=== PATIENT | female | born 1970 | race Caucasian/White ===

== ENCOUNTER → 2018-05-04 11:38 | Outpatient (CLI) | payer OTHER, SELFPAY ==
[2018-05-04 12:04] LABS: Add Manual Diff / Slide Review NO; Basophils Percent Auto 0.7 % (0-2); Eosinophils Percent Auto 8.2 % (2-4); Hematocrit 40.1 % (36-46); Hemoglobin 13.8 g/dL (12.0-16.0); Lymphocytes Percent Auto 30.7 % (25-40); Mean Corpuscular HGB Conc 34.3 % (30-36); Mean Corpuscular Hemoglobin 30.3 PG (26-34); Mean Corpuscular Volume 88.5 fL (80-100); Monocytes Percent Auto 8.5 % (3-14); Neutrophils Absolute Auto 3200 /uL (3000-5900); Neutrophils Percent Auto 51.9 % (50-75); Platelet Count 267 X10^3/uL (150-400); Red Blood Cell Count 4.54 X10^6/uL (4.0-5.2); Red Cell Distribution Width 13.8 % (11.6-14.8); White Blood Cell Count 6.2 X10^3/uL (4.5-11.0)
[2018-05-04 12:49] LABS: Alanine Aminotransferase 28 IU/L (9-52); Albumin 3.7 g/dL (3.5-5.0); Albumin Globulin Ratio 1.1 (1.0-2.8); Alkaline Phosphatase 65 U/L (38-126); Aspartate Aminotransferase 24 IU/L (14-36); BUN Creatinine Ratio 17.1 (6-22); Bilirubin Total 0.4 mg/dL (0.2-1.3); Blood Urea Nitrogen 12 mg/dL (7-17); Carbon Dioxide 27 mmol/L (22-32); Chloride 104 mmol/L (98-107); Cholesterol 125 mg/dL (140-199); Estimated Glomerular Filt Rate > 60.0 mL/min (>60); Globulin 3.3 g/dL (1.7-4.1); Glucose 79 mg/dL (70-100); HDL Cholesterol 44 mg/dL (40-60); HEMOLYSIS < 15 (0-50); LDL Cholesterol Calculated 72 mg/dL (<100); Potassium 3.9 mmol/L (3.4-5.1); Sodium 138 mmol/L (137-145); Triglycerides 45 mg/dL (35-150)
[2018-05-04 14:07] LABS: INR 2.9 (0.9-1.3); Prothrombin Time 32.1 SECONDS (10.1-12.7)
[2018-05-04 14:09] LABS: PTT Partial Thromboplastin Tim 40 SECONDS (26.4-36.2)
[2018-05-04 15:07] LABS: Appearance Urine UA CLEAR; Bilirubin Urine UA NEGATIVE (NEGATIVE); Color Urine UA YELLOW; Glucose Urine UA NEGATIVE (Normal); Ketones Urine UA NEGATIVE (NEGATIVE); Leukocyte Esterase Urine UA NEGATIVE (NEGATIVE); Nitrite Urine UA Negative (Negative); Occult Blood Urine UA NEGATIVE (Negative); Protein Urine UA NEGATIVE (Negative); Urobilinogen Urine UA 0.2 E.U./dL (0.2)
== END ==
PROVIDERS: Family Provider Family Medicine; PCP Family Medicine; Visit Provider Family Medicine
DX: D68.51 Activated protein C resistance (principal); I10 Essential (primary) hypertension; K62.5 Hemorrhage of anus and rectum; Z51.81 Encounter for therapeutic drug level monitoring; Z79.01 Long term (current) use of anticoagulants
CPT/HCPCS: 36415; 80053; 80061; 81003; 84443; 85025; 85610; 85730

== ENCOUNTER → 2019-06-03 08:39 | Outpatient (CLI) | payer OTHER, SELFPAY ==
[2019-06-03 09:53] LABS: Appearance Urine UA CLEAR; Bilirubin Urine UA NEGATIVE (NEGATIVE); Color Urine UA YELLOW; Glucose Urine UA NEGATIVE (Negative); Ketones Urine UA NEGATIVE (NEGATIVE); Leukocyte Esterase Urine UA NEGATIVE (NEGATIVE); Nitrite Urine UA NEGATIVE (Negative); Occult Blood Urine UA NEGATIVE (Negative); Protein Urine UA NEGATIVE (Negative); Specific Gravity Urine UA 1.015 (1.000-1.035); Urobilinogen Urine UA 0.2 E.U./dL (0.2)
[2019-06-03 09:54] LABS: pH Urine UA 6.5 (4.5-8.0)
[2019-06-03 10:01] LABS: Hemoglobin 14.1 g/dL (12.0-16.0); Mean Corpuscular HGB Conc 33.5 % (30-36); Mean Corpuscular Hemoglobin 30.2 PG (26-34); Mean Corpuscular Volume 90.1 fL (80-100); Platelet Count 184 X10^3/uL (150-400); Red Blood Cell Count 4.66 X10^6/uL (4.0-5.2); White Blood Cell Count 8.1 X10^3/uL (4.5-11.0)
[2019-06-03 10:18] LABS: Neutrophils Absolute Manual 3888 /uL (3000-5900); Total Cells Counted 100
[2019-06-03 10:19] LABS: RBC Morphology Normal Morphology
[2019-06-03 10:24] LABS: Alanine Aminotransferase 18 IU/L (9-52); Albumin 4.1 g/dL (3.5-5.0); Albumin Globulin Ratio 1.2 (1.0-2.8); Alkaline Phosphatase 79 U/L (38-126); Aspartate Aminotransferase 27 IU/L (14-36); BUN Creatinine Ratio 28.8 (6-22); Bilirubin Total 0.6 mg/dL (0.2-1.3); Blood Urea Nitrogen 23 mg/dL (7-17); Calcium 9.4 mg/dL (8.4-10.2); Carbon Dioxide 27 mmol/L (22-32); Chloride 104 mmol/L (98-107); Cholesterol 152 mg/dL (140-199); Estimated Glomerular Filt Rate > 60.0 mL/min (>60); Globulin 3.5 g/dL (1.7-4.1); Glucose 88 mg/dL (70-100); HDL Cholesterol 48 mg/dL (40-60); HEMOLYSIS 16 (0-50); LDL Cholesterol Calculated 91 mg/dL (<100); Sodium 140 mmol/L (137-145); Total Protein 7.6 g/dL (6.3-8.2); Triglycerides 64 mg/dL (35-150)
[2019-06-03 10:45] LABS: Prothrombin Time 12.1 SECONDS (10.1-12.7)
[2019-06-03 11:31] LABS: Thyroid Stimulating Hormone 3.44 uIU/mL (0.47-4.68)
== END ==
PROVIDERS: PCP Family Medicine; Visit Provider Family Medicine
DX: Z00.00 Encounter for general adult medical examination without abnormal findings (principal); D68.51 Activated protein C resistance; I10 Essential (primary) hypertension; R32 Unspecified urinary incontinence; Z51.81 Encounter for therapeutic drug level monitoring
CPT/HCPCS: 36415; 80053; 80061; 81003; 84443; 85025; 85610

== ENCOUNTER → 2020-01-27 09:20 | Outpatient (CLI) | payer OTHER, SELFPAY ==
[2020-01-27 10:33] LABS: Alanine Aminotransferase 19 IU/L (<35); Albumin 4.2 g/dL (3.5-5.0); Albumin Globulin Ratio 1.2 (1.0-2.8); Alkaline Phosphatase 68 U/L (38-126); Aspartate Aminotransferase 27 IU/L (14-36); BUN Creatinine Ratio 23.5 (6-22); Bilirubin Total 0.5 mg/dL (0.2-1.3); Blood Urea Nitrogen 20 mg/dL (7-17); Calcium 9.7 mg/dL (8.4-10.2); Carbon Dioxide 28 mmol/L (22-32); Chloride 103 mmol/L (98-107); Cholesterol 152 mg/dL (140-199); Estimated Glomerular Filt Rate > 60.0 mL/min (>60); Globulin 3.6 g/dL (1.7-4.1); Glucose 89 mg/dL (70-100); HDL Cholesterol 41 mg/dL (40-60); HEMOLYSIS < 15 (0-50); LDL Cholesterol Calculated 101 mg/dL (<100); Potassium 4.1 mmol/L (3.4-5.1); Sodium 142 mmol/L (137-145); Total Protein 7.8 g/dL (6.3-8.2); Triglycerides 51 mg/dL (35-150)
== END ==
PROVIDERS: PCP Internal Medicine; Referring Provider Internal Medicine; Visit Provider Internal Medicine
DX: I10 Essential (primary) hypertension (principal); E66.01 Morbid (severe) obesity due to excess calories
CPT/HCPCS: 36415; 80053; 80061

== ENCOUNTER 2020-09-08 10:34 | Emergency (ER) | payer OTHER, SELFPAY ==
[2020-09-08] VITALS (10 sets, daily range): BP systolic 190–200; BP diastolic 81–94; PULSE 55–79; RESP 14–30; TEMP 35.8; O2SAT 82–98; BMI 43.5
--- NOTE | 2020-09-08 10:42 | ED_ITS ---
HPI - General Adult General Chief complaint: Chest Pain Stated complaint: nausea/vomiting/abdominal pain x3 day Time Seen by Provider: 09/08/20 10:42 History of Present Illness HPI narrative: 49-year-old with a history of factor 5 Leiden deficiency, prior pulmonary emboli on lifelong anticoagulation with Coumadin and hypertension presents with 4 days of chest and abdominal pain that she describes as starting just below the clavicles and extending to just above the umbilicus. She does have some pain centering between her shoulder blades she describes some nonbloody vomiting but no diarrhea. She notes she has been slightly constipated with her last bowel movement 3 days ago but she has also been hurting so much that she has been eating little. The pain is slightly worse with deep breathing and not helped with Tylenol. Tums is not influence the pain. She describes no dyspnea or palpitations but does describe chills and a sense of feeling warm without an overt temperature. She states the pain is severe enough that she has been able to sleep only 1-2 hours at a time in complains of significant fatigue as well. She notes no headaches and does not report any new lower extremity edema nor calf pain. Related Data Previous Rx's Medication Instructions Recorded bupropion HCl 150 mg tablet,12 hr 150 mg PO BID #180 tab 12/16/19 sustained-release metoprolol tartrate 25 mg tablet 25 mg PO BID #180 tab 12/16/19 warfarin 5 mg tablet 10 mg PO QDAY #60 tab 02/07/20 oxybutynin chloride 10 mg 10 mg PO DAILY #90 tab 08/04/20 tablet,extended release 24 hr losartan 25 mg tablet 25 mg PO DAILY #90 tab 09/07/20 oxycodone-acetaminophen 1 tab PO Q6H PRN 7 Days #20 tab 09/08/20 Allergies Allergy/AdvReac Type Severity Reaction Status Date / Time Sulfa (Sulfonamide Allergy Intermediate visual Verified 09/08/20 10:48 Antibiotics) disturbance venlafaxine Allergy Intermediate Verified 09/08/20 10:48 Review of Systems Review of Systems Narrative: Remainder of review of systems including constitutional, ENT, cardiovascular, respiratory, GI, , musculoskeletal, skin, neurologic and psychiatric systems reviewed and are unremarkable except as noted in HPI. Patient History Medical History ASCUS with positive high risk HPV Congenital heart disease Contusion of rib on right side Depression (Unknown) Factor V Leiden Hypertension Puncture wound of left hand Social History Smoking Status: Former smoker (Quit over 15 years ago) alcohol intake: never substance use type: does not use Smoking Status: Former smoker (Quit over 15 years ago) Exam Narrative Exam Narrative: General: Healthy appearing, in mild distress. Able to give a complete and coherent history. Well-nourished well-developed, able speak in full sentences without respiratory distress HEENT: Moist mucous membranes, normal sclera with reactive pupils, Neck: No JVD, supple Respiratory: Lungs are clear to auscultation, no wheezing no rales no rhonchi. Full and symmetrical air movement Cardiac: Regular rate and rhythm no murmurs no bruits Abdomen: Soft, mild epigastric tenderness, good bowel tones, no flank pain Spine: No point tenderness along the spine. She describes paraspinous pain between her shoulder blades that is not reproducible with palpation Skin: Warm and dry, no rashes Neurologic: Grossly neurologically intact with no obvious asymmetries or abnormalities Extremities: No trauma, well perfused Psych: Cooperative, appropriate insight and affect Initial Vital Signs Initial Vital Signs: Vital Signs Temperature 96.4 F L 09/08/20 10:43 Pulse Rate 79 09/08/20 10:43 Respiratory Rate 18 09/08/20 10:43 Blood Pressure 200/94 H 09/08/20 10:43 Pulse Oximetry 98 09/08/20 10:43 Course Orders Ordered: ED Orders 09/08/20 10:45 EKG-12 Lead Routine 09/08/20 10:46 Urine Microscopic Stat 09/08/20 10:47 Complete Blood Count AUTO DIFF Stat Comprehensive Metabolic Panel Stat Lipase Stat Partial Thromboplastin Time Stat Prothrombin Time INR Stat Troponin & CK Cardiac Panel Stat 09/08/20 11:29 CT angio chest abdomen pelvis Stat Hydromorphone HCl (Hydromorphone 0.5 Mg Inj) 0.5 mg IV Q15MIN PRN PRN Reason: Pain, Last Admin: 09/08/20 12:34 Dose: 0.5 mg Documented by: KBROTEPorter Admin: 09/08/20 11:13 Dose: 0.5 mg Documented by: BETSY Discontinued Medications Sodium Chloride (Normal Saline 0.9%) 1,000 mls @ 1,000 mls/hr IV BOLUS ONE Stop: 09/08/20 12:07 Last Admin: 09/08/20 11:13 Dose: 1,000 mls/hr Documented by: BETSY Ondansetron HCl (Ondansetron 4 Mg/2 Ml Inj) 4 mg IV NOW ONE Stop: 09/08/20 11:09 Last Admin: 09/08/20 11:13 Dose: 4 mg Documented by: BETSY Oxycodone/Acetaminophen (Oxycodone/Acetaminophen 5/325 Tablet) 1 tab PO NOW ONE Stop: 09/08/20 13:11 Vital Signs Vital signs: Vital Signs - 8 hr 09/08/20 10:43 09/08/20 10:51 09/08/20 11:00 Temperature 96.4 F L Pulse Rate 79 61 59 L Respiratory Rate 18 30 H 26 H Blood Pressure 200/94 H Pulse Oximetry 98 98 97 09/08/20 11:19 09/08/20 11:30 09/08/20 12:00 Temperature Pulse Rate 58 L 65 55 L Respiratory Rate 14 25 H Blood Pressure 199/90 H Pulse Oximetry 98 82 L 98 09/08/20 12:30 Temperature Pulse Rate 55 L Respiratory Rate 29 H Blood Pressure Pulse Oximetry 97 Medical Decision Making Medical Records Medical records reviewed: Yes I reviewed the patient's medical records. Lab Data Lab results reviewed: Yes I reviewed the patient's lab results. Result diagrams: 09/08/20 10:47 09/08/20 10:47 Labs: Lab Results 09/08/20 09/08/20 09/08/20 Range/Units 10:46 10:47 10:47 WBC 15.6 H (4.5-11.0) X10^3/uL RBC 4.38 (4.0-5.2) X10^6/uL Hgb 13.2 (12.0-16.0) g/dL Hct 39.9 (36-46) % MCV 91.1 (80-100) fL MCH 30.2 (26-34) PG MCHC 33.2 (30-36) % RDW 13.3 (11.6-14.8) % Plt Count 258 (150-400) X10^3/uL Neut % (Auto) 75.4 H (50-75) % Lymph % (Auto) 12.2 L (25-40) % [place] % (Auto) 10.2 (3-14) % Eos % (Auto) 2.0 (2-4) % Baso % (Auto) 0.2 (0-2) % Neut # (Auto) 04903 H (9149-6339) /uL Lymph # (Auto) 1900 (5790-2211) /uL [place] # (Auto) 1600 H (0-900) /uL Eos # (Auto) 300 (0-450) /uL Baso # (Auto) 0 (0-100) /uL PT 24.8 H (10.1-12.7) SECONDS INR 2.2 H (0.9-1.3) APTT 38 H (26.4-36.2) SECONDS Sodium (137-145) mmol/L Potassium (3.4-5.1) mmol/L Chloride (98-107) mmol/L Carbon Dioxide (22-32) mmol/L BUN (7-17) mg/dL Creatinine (0.52-1.04) mg/dL Estimated GFR (>60) mL/min BUN/Creatinine Ratio (6-22) Glucose (70-100) mg/dL Calcium (8.4-10.2) mg/dL Total Bilirubin (0.2-1.3) mg/dL AST (14-36) IU/L ALT (<35) IU/L Alkaline Phosphatase (38-126) U/L Total Creatine Kinase (30-135) U/L CK-MB (CK-2) CK-MB (CK-2) Rel Index Troponin I (0.01-0.034) ng/mL Total Protein (6.3-8.2) g/dL Albumin (3.5-5.0) g/dL Globulin (1.7-4.1) g/dL Albumin/Globulin Ratio (1.0-2.8) Lipase (23-300) U/L Urine RBC 5-10/hpf H (0-5/HPF) Urine WBC None seen (0-5/HPF) Ur Squamous Epith Cells 5-10 /hpf H (0-5/HPF) Urine Bacteria None seen (None) Ur Culture Indicated? Cult not indicated 12/15/20 Range/Units 10:47 WBC (4.5-11.0) X10^3/uL RBC (4.0-5.2) X10^6/uL Hgb (12.0-16.0) g/dL Hct (36-46) % MCV (80-100) fL MCH (26-34) PG MCHC (30-36) % RDW (11.6-14.8) % Plt Count (150-400) X10^3/uL Neut % (Auto) (50-75) % Lymph % (Auto) (25-40) % [place] % (Auto) (3-14) % Eos % (Auto) (2-4) % Baso % (Auto) (0-2) % Neut # (Auto) (4458-7890) /uL Lymph # (Auto) (2896-7656) /uL [place] # (Auto) (0-900) /uL Eos # (Auto) (0-450) /uL Baso # (Auto) (0-100) /uL PT (10.1-12.7) SECONDS INR (0.9-1.3) APTT (26.4-36.2) SECONDS Sodium 139 (137-145) mmol/L Potassium 3.6 (3.4-5.1) mmol/L Chloride 101 (98-107) mmol/L Carbon Dioxide 31 (22-32) mmol/L BUN 9 (7-17) mg/dL Creatinine 0.68 (0.52-1.04) mg/dL Estimated GFR > 60.0 (>60) mL/min BUN/Creatinine Ratio 13.2 (6-22) Glucose 105 H (70-100) mg/dL Calcium 9.3 (8.4-10.2) mg/dL Total Bilirubin 0.6 (0.2-1.3) mg/dL AST 71 H (14-36) IU/L ALT 77 H (<35) IU/L Alkaline Phosphatase 82 (38-126) U/L Total Creatine Kinase 39 (30-135) U/L CK-MB (CK-2) TNP CK-MB (CK-2) Rel Index TNP Troponin I < 0.012 (0.01-0.034) ng/mL Total Protein 7.9 (6.3-8.2) g/dL Albumin 4.1 (3.5-5.0) g/dL Globulin 3.8 (1.7-4.1) g/dL Albumin/Globulin Ratio 1.1 (1.0-2.8) Lipase 549 H (23-300) U/L Urine RBC (0-5/HPF) Urine WBC (0-5/HPF) Ur Squamous Epith Cells (0-5/HPF) Urine Bacteria (None) Ur Culture Indicated? Imaging Data CTA Chest Abd Pelvis: Radiologist's Impression: FINDINGS: Image quality: Excellent. AORTA: There is no thoracic or abdominal aortic aneurysm. No aortic dissection. No significant atherosclerotic disease is noted. CHEST: Lungs and pleura: No acute airspace opacities. No pleural effusions or pneumothorax. Central and peripheral airways are patent and normal in caliber. Mediastinum: Heart size is normal. No pericardial effusion. No mediastinal or hilar adenopathy by size criteria. Central pulmonary arteries are normal in size. Esophagus is normal in caliber. No gross filling defect is seen in main pulmonary trunk and bilateral main pulmonary arteries and segmental pulmonary artery branches. No hiatal hernias. Bones and chest wall: No axillary adenopathy by size criteria. Thyroid gland is mildly enlarged with small bilateral hypodense thyroid nodules. . No suspicious bony lesions. No vertebral body compression fractures. ABDOMEN: Vasculature: Celiac trunk and mesenteric arteries are patent. Renal arteries are also patent. Solid organs: Liver is normal in size and enhancement. Gallbladder is surgically absent. Biliary system is non dilated. Pancreas enhances normally. Spleen is normal in size and enhancement. No adrenal nodules. Both kidneys are normal in size and enhancement, without hydronephrosis. Peritoneum and bowel: No free fluid or air. Bowel loops are normal in caliber and wall thickness. Appendix is visualized and is within normal limits. Mild fecal stasis in the colon is seen. Nodes and vessels: No retroperitoneal or mesenteric adenopathy by size criteria. Inferior vena cava is normal in morphology. Miscellaneous: No ventral hernias. PELVIS: Genitourinary: Bladder wall thickness is normal. Uterus and bilateral adnexa show no gross abnormality Miscellaneous: No inguinal hernias or adenopathy. No ventral hernias. Bones: No suspicious bony lesions. No vertebral body compression fractures. IMPRESSION: 1. No aortic aneurysm or dissection. 2. No evidence of central pulmonary emboli. 3. No hemodynamically significant stenosis is noted in major branches of thoracic and abdominal aorta. 4. Bilateral lungs are clear. 5. No acute inflammatory process is seen in abdomen or pelvis. Dictated by: Randall Marin M.D. on 09/08/2020 at 12:42 ECG Data Attestation: I personally reviewed and interpreted this ECG as follows: Interpretation: Sinus rhythm at a rate of 59 Normal intervals, normal axis Nonspecific ST T wave changes No acute ischemia MDM Narrative Medical decision making narrative: 49-year-old woman with complex medical history presenting with interesting constellation of pain symptoms that has wide differential to start with. Initial EKG does not suggest STEMI, certainly recurrent PE, pneumonia, aortic dissection, posterior gastric ulcer, pancreatitis, gallbladder disease, inflammation of the transverse colon, retroperitoneal abnormalities could all be included. Will begin with fluid secondary to the recent vomiting pop, pain control, nausea control and initiate broad workup CT scan comes back very reassuring specifically does not show pulmonary embolism, dissection, pneumonia or obvious pancreatic swelling to go with her elevated lipase and pain presentation. There is no evidence of internal bleeding with an appropriate INR 2.2 Most likely explanation for findings at this time include pancreatitis uncertain etiology. She does not have a gallbladder and no obvious obstructing source on CT scan. She has had no change to recent medications and does not use illicit medications or drink much alcohol. We discussed admission for pain management and fluids verses I trial attempt at discharge home with clear liquids today and Percocet for pain control. She felt that that would be a reasonable option as do I. Encouraged to return should she have worsening symptoms or not clearly be improving within the next couple of days Discharge Plan Departure Patient Disposition: Home Clinical Impression: Acute pancreatitis Qualifiers: Pancreatitis type: unspecified pancreatitis type Acute pancreatitis complication: no infection or necrosis Qualified Code(s): K85.90 - Acute pancreatitis without necrosis or infection, unspecified Instructions: DI for Pancreatitis Activity Restrictions/Additional Instructions: Thank you for coming in today I did not find any immediate life-threatening cause to explain the pain that you are experiencing. Specifically you do not have recurrent pulmonary embolism, no aortic dissection, no pneumonia, no intra-abdominal abnormalities or bleeding appreciated. Your lab work suggests mild pancreatitis. Your CT scan does not show significant inflammation of your pancreas which correlates with mild pancreatitis. Your INR was 2.2 today With shared decision making, we opted to have you go home. I will give you a prescription for Percocet to use for pain control. Prescription was electronically transmitted to [facility] for you today You can have water and clear liquids for the next 24 hours and then gradually increase your diet as feels appropriate. If your eating more and having increasing pain than it you need to decrease the eating for another 12-24 hours. If pain cannot be controlled, your developing fevers, vomiting or diarrhea please have a very low threshold for returning to the emergency department for further evaluation. I hope you feel better Prescriptions: New oxycodone-acetaminophen 5-325 mg tablet 1 tab PO Q6H PRN (Reason: pain) 7 Days Qty: 20 RF: 0 No Action metoprolol tartrate 25 mg tablet 25 mg PO BID Qty: 180 RF: 0 bupropion HCl [Wellbutrin SR] 150 mg tablet sustained-release 12 hr 150 mg PO BID Qty: 180 RF: 0 Hold Instructions: Is 24hr form covered? warfarin [Coumadin] 5 mg tablet 10 mg PO QDAY Qty: 60 RF: 0 oxybutynin chloride 10 mg tablet extended release 24hr 10 mg PO DAILY Qty: 90 RF: 3 losartan 25 mg tablet 25 mg PO DAILY Qty: 90 RF: 2 Referrals: Donald Painting MD [Primary Care Provider] -
[2020-09-08 10:51] LABS: Bacteria Urine None Seen; WBC Urine None Seen (0-5/HPF)
[2020-09-08 10:59] LABS: Culture Indicated Urine Cult Not Indicated; RBC Urine 5-10/HPF (0-5/HPF); Squamous Epithelial Cell Urine 5-10 /HPF (0-5/HPF)
[2020-09-08 11:13] LABS: Add Manual Diff / Slide Review NO; Basophils Absolute Auto 0 /uL (0-100); Basophils Percent Auto 0.2 % (0-2); Eosinophils Absolute Auto 300 /uL (0-450); Hematocrit 39.9 % (36-46); Hemoglobin 13.2 g/dL (12.0-16.0); INR 2.2 (0.9-1.3); Lymphocytes Absolute Auto 1900 /uL (1100-4500); Lymphocytes Percent Auto 12.2 % (25-40); Mean Corpuscular HGB Conc 33.2 % (30-36); Mean Corpuscular Hemoglobin 30.2 PG (26-34); Mean Corpuscular Volume 91.1 fL (80-100); Monocytes Absolute Auto 1600 /uL (0-900); Monocytes Percent Auto 10.2 % (3-14); Neutrophils Absolute Auto 11700 /uL (1500-7000); Neutrophils Percent Auto 75.4 % (50-75); Platelet Count 258 X10^3/uL (150-400); Prothrombin Time 24.8 SECONDS (10.1-12.7); Red Blood Cell Count 4.38 X10^6/uL (4.0-5.2); Red Cell Distribution Width 13.3 % (11.6-14.8); White Blood Cell Count 15.6 X10^3/uL (4.5-11.0)
[2020-09-08] MEDS: SODIUM CHLORIDE 0.9% 1,000 ML 1000 ML IV (11:13)
[2020-09-08] MEDS: ONDANSETRON 4 MG/2 ML INJ IV (11:13)
[2020-09-08] MEDS: HYDROMORPHONE 0.5 MG INJ IV ×2 (11:13→12:34)
[2020-09-08 11:15] LABS: PTT Partial Thromboplastin Tim 38 SECONDS (26.4-36.2)
[2020-09-08 11:17] LABS: Alanine Aminotransferase 77 IU/L (<35); Albumin 4.1 g/dL (3.5-5.0); Albumin Globulin Ratio 1.1 (1.0-2.8); Alkaline Phosphatase 82 U/L (38-126); Aspartate Aminotransferase 71 IU/L (14-36); BUN Creatinine Ratio 13.2 (6-22); Bilirubin Total 0.6 mg/dL (0.2-1.3); Blood Urea Nitrogen 9 mg/dL (7-17); Calcium 9.3 mg/dL (8.4-10.2); Carbon Dioxide 31 mmol/L (22-32); Chloride 101 mmol/L (98-107); Creatine Kinase 39 U/L (30-135); Estimated Glomerular Filt Rate > 60.0 mL/min (>60); Globulin 3.8 g/dL (1.7-4.1); Glucose 105 mg/dL (70-100); HEMOLYSIS < 15 (0-50); Lipase 549 U/L (23-300); Potassium 3.6 mmol/L (3.4-5.1); Sodium 139 mmol/L (137-145); Total Protein 7.9 g/dL (6.3-8.2)
[2020-09-08 11:28] LABS: Troponin I < 0.012 ng/mL (0.01-0.034)
--- NOTE | 2020-09-08 11:29 | DI.CT.S_ITS ---
PROCEDURE: CT ANGIO CHEST ABDOMEN PELVIS INDICATIONS: chest/abd pain, prior PEs, ? dissection TECHNIQUE: Precontrast 5 mm thick sections acquired from the lung apices to the iliac crests. After the administration of intravenous contrast, 2.5 mm thick sections again acquired from the lung apices to the iliac crests. Maximum intensity projection (MIP) oblique sagittal and coronal reformats were then acquired. For radiation dose reduction, the following was used: automated exposure control. COMPARISON: None. FINDINGS: Image quality: Excellent. AORTA: There is no thoracic or abdominal aortic aneurysm. No aortic dissection. No significant atherosclerotic disease is noted. CHEST: Lungs and pleura: No acute airspace opacities. No pleural effusions or pneumothorax. Central and peripheral airways are patent and normal in caliber. Mediastinum: Heart size is normal. No pericardial effusion. No mediastinal or hilar adenopathy by size criteria. Central pulmonary arteries are normal in size. Esophagus is normal in caliber. No gross filling defect is seen in main pulmonary trunk and bilateral main pulmonary arteries and segmental pulmonary artery branches. No hiatal hernias. Bones and chest wall: No axillary adenopathy by size criteria. Thyroid gland is mildly enlarged with small bilateral hypodense thyroid nodules. . No suspicious bony lesions. No vertebral body compression fractures. ABDOMEN: Vasculature: Celiac trunk and mesenteric arteries are patent. Renal arteries are also patent. Solid organs: Liver is normal in size and enhancement. Gallbladder is surgically absent. Biliary system is non dilated. Pancreas enhances normally. Spleen is normal in size and enhancement. No adrenal nodules. Both kidneys are normal in size and enhancement, without hydronephrosis. Peritoneum and bowel: No free fluid or air. Bowel loops are normal in caliber and wall thickness. Appendix is visualized and is within normal limits. Mild fecal stasis in the colon is seen. Nodes and vessels: No retroperitoneal or mesenteric adenopathy by size criteria. Inferior vena cava is normal in morphology. Miscellaneous: No ventral hernias. PELVIS: Genitourinary: Bladder wall thickness is normal. Uterus and bilateral adnexa show no gross abnormality Miscellaneous: No inguinal hernias or adenopathy. No ventral hernias. Bones: No suspicious bony lesions. No vertebral body compression fractures. IMPRESSION: 1. No aortic aneurysm or dissection. 2. No evidence of central pulmonary emboli. 3. No hemodynamically significant stenosis is noted in major branches of thoracic and abdominal aorta. 4. Bilateral lungs are clear. 5. No acute inflammatory process is seen in abdomen or pelvis. Dictated by: Randall Marin M.D. on 09/08/2020 at 12:42 Approved by: Randall Marin M.D. on 09/08/2020 at 12:52
--- NOTE | 2020-09-08 12:10 | PC.NURSE ---
Patient has not been feeling well for several days. Reports pain from shoulders to lower abd. Through and through. Patient has had nausea, some vomiting. Denies SOB, denies chest pain. Has history of PE in her early 30's
[2020-09-08] MEDS: OXYCODONE/ACETAMINOPHEN 5/325 TABLET 1 TAB PO (13:18)
== END 2020-09-08 14:01 | disposition home or self-care (01) ==
PROVIDERS: Emergency Provider Emergency Medicine; PCP Student in an Organized Health Care Education/Training Program
DX: K85.90 Acute pancreatitis without necrosis or infection, unspecified (principal); R79.89 Other specified abnormal findings of blood chemistry; I10 Essential (primary) hypertension; I26.99 Other pulmonary embolism without acute cor pulmonale; Z79.01 Long term (current) use of anticoagulants; R10.9 Unspecified abdominal pain; K59.00 Constipation, unspecified; R11.2 Nausea with vomiting, unspecified
CPT/HCPCS: 36415; 71275; 74174; 80053; 81015; 82550; 83690; 84484; 85025; 85610; 85730; 93005; 93010; 96361; 96374; 96375; 99283; 99284; J1170; J2405; Q9967

== ENCOUNTER → 2021-08-25 10:13 | Outpatient (CLI) | payer OTHER, SELFPAY ==
[2021-08-25 10:54] LABS: Add Manual Diff / Slide Review NO; Basophils Absolute Auto 100 /uL (0-100); Basophils Percent Auto 1.2 % (0-2); Eosinophils Absolute Auto 400 /uL (0-450); Eosinophils Percent Auto 7.4 % (2-4); Hematocrit 39.6 % (36-46); Hemoglobin 13.3 g/dL (12.0-16.0); Lymphocytes Absolute Auto 1900 /uL (1100-4500); Lymphocytes Percent Auto 34.8 % (25-40); Mean Corpuscular HGB Conc 33.6 % (30-36); Mean Corpuscular Hemoglobin 30.2 PG (26-34); Mean Corpuscular Volume 89.8 fL (80-100); Monocytes Absolute Auto 500 /uL (0-900); Monocytes Percent Auto 8.3 % (3-14); Neutrophils Absolute Auto 2700 /uL (1500-7000); Neutrophils Percent Auto 48.3 % (50-75); Platelet Count 252 X10^3/uL (150-400); Red Blood Cell Count 4.41 X10^6/uL (4.0-5.2); Red Cell Distribution Width 13.5 % (11.6-14.8); White Blood Cell Count 5.5 X10^3/uL (4.5-11.0)
[2021-08-25 11:08] LABS: INR 1.3 (0.9-1.3); Prothrombin Time 15.2 SECONDS (10.1-12.7)
[2021-08-25 11:19] LABS: Alanine Aminotransferase 38 IU/L (<35); Albumin 4.3 g/dL (3.5-5.0); Albumin Globulin Ratio 1.3 (1.0-2.8); Alkaline Phosphatase 103 U/L (38-126); Amylase 69 U/L (30-110); Aspartate Aminotransferase 40 IU/L (14-36); BUN Creatinine Ratio 19.3 (6-22); Bilirubin Total 0.4 mg/dL (0.2-1.3); Blood Urea Nitrogen 16 mg/dL (7-17); Calcium 9.6 mg/dL (8.4-10.2); Carbon Dioxide 31 mmol/L (22-32); Chloride 105 mmol/L (98-107); Estimated Glomerular Filt Rate > 60.0 mL/min (>60); Globulin 3.2 g/dL (1.7-4.1); Glucose 93 mg/dL (70-100); HEMOLYSIS < 15 (0-50); Lipase 61 U/L (23-300); Potassium 4.1 mmol/L (3.4-5.1); Sodium 140 mmol/L (137-145); Total Protein 7.5 g/dL (6.3-8.2)
== END ==
PROVIDERS: PCP Physician Assistant; Referring Provider Physician Assistant; Visit Provider Physician Assistant
DX: Z86.711 Personal history of pulmonary embolism (principal); K85.90 Acute pancreatitis without necrosis or infection, unspecified
CPT/HCPCS: 36415; 80053; 82150; 83690; 85025; 85610

== ENCOUNTER → 2022-03-05 08:39 | Outpatient (CLI) | payer OTHER, SELFPAY ==
[2022-03-05 09:21] LABS: Add Manual Diff / Slide Review NO; Basophils Absolute Auto 100 /uL (0-100); Basophils Percent Auto 1.3 % (0-2); Eosinophils Absolute Auto 400 /uL (0-450); Eosinophils Percent Auto 10.9 % (2-4); Hematocrit 38.5 % (36-46); Hemoglobin 13.1 g/dL (12.0-16.0); Lymphocytes Absolute Auto 1700 /uL (1100-4500); Lymphocytes Percent Auto 42.1 % (25-40); Mean Corpuscular HGB Conc 33.9 % (30-36); Mean Corpuscular Hemoglobin 30.8 PG (26-34); Mean Corpuscular Volume 90.7 fL (80-100); Monocytes Absolute Auto 300 /uL (0-900); Monocytes Percent Auto 8.4 % (3-14); Neutrophils Absolute Auto 1500 /uL (1500-7000); Neutrophils Percent Auto 37.3 % (50-75); Platelet Count 225 X10^3/uL (150-400); Red Blood Cell Count 4.25 X10^6/uL (4.0-5.2); Red Cell Distribution Width 13.6 % (11.6-14.8); White Blood Cell Count 4.1 X10^3/uL (4.5-11.0)
[2022-03-05 09:38] LABS: INR 1.6 (0.9-1.3); Prothrombin Time 17.7 SECONDS (10.1-12.7)
[2022-03-05 09:49] LABS: Alanine Aminotransferase 25 IU/L (<35); Albumin 3.9 g/dL (3.5-5.0); Albumin Globulin Ratio 1.3 (1.0-2.8); Alkaline Phosphatase 73 U/L (38-126); Aspartate Aminotransferase 30 IU/L (14-36); BUN Creatinine Ratio 22.6 (6-22); Bilirubin Total 0.4 mg/dL (0.2-1.3); Blood Urea Nitrogen 19 mg/dL (7-17); Calcium 8.7 mg/dL (8.4-10.2); Carbon Dioxide 30 mmol/L (22-32); Chloride 106 mmol/L (98-107); Cholesterol 146 mg/dL (140-199); Estimated Glomerular Filt Rate > 60 mL/min (>60); Glucose 90 mg/dL (70-100); HDL Cholesterol 58 mg/dL (40-60); HEMOLYSIS < 15 (0-50); LDL Cholesterol Calculated 79 mg/dL (<100); Sodium 141 mmol/L (137-145); Total Protein 6.9 g/dL (6.3-8.2); Triglycerides 46 mg/dL (35-150)
== END ==
PROVIDERS: PCP Physician Assistant; Referring Provider Physician Assistant; Visit Provider Physician Assistant
DX: Z86.711 Personal history of pulmonary embolism (principal); I10 Essential (primary) hypertension
CPT/HCPCS: 36415; 80053; 80061; 85025; 85610

== ENCOUNTER → 2023-10-10 09:36 | Outpatient (CLI) | payer OTHER, SELFPAY ==
[2023-10-10 10:39] LABS: Hemoglobin A1C% w Est Avg Glu 5.2 % (4.0-6.0)
[2023-10-10 10:51] LABS: Alanine Aminotransferase 509 IU/L (<35); Albumin 4.1 g/dL (3.5-5.0); Albumin Globulin Ratio 1.1 (1.0-2.8); Alkaline Phosphatase 114 U/L (38-126); Aspartate Aminotransferase 288 IU/L (14-36); Bilirubin Total 0.8 mg/dL (0.2-1.3); Blood Urea Nitrogen 21 mg/dL (7-17); Calcium 9.9 mg/dL (8.4-10.2); Carbon Dioxide 29 mmol/L (22-32); Chloride 104 mmol/L (98-107); Cholesterol 168 mg/dL (140-199); Estimated Glomerular Filt Rate > 60 mL/min (>60); Globulin 3.7 g/dL (1.7-4.1); Glucose 92 mg/dL (70-100); HDL Cholesterol 54 mg/dL (40-60); HEMOLYSIS < 15 (0-50); LDL Cholesterol Calculated 106 mg/dL (<100); Potassium 4.2 mmol/L (3.4-5.1); Sodium 139 mmol/L (137-145); Total Protein 7.8 g/dL (6.3-8.2); Triglycerides 41 mg/dL (35-150)
[2023-10-10 11:31] LABS: HIV 1 & 2 Ab/Ag 4th Gen Combo NEGATIVE (NEGATIVE)
[2023-10-10 16:36] LABS: Microalbumin Urine Random < 0.6 mg/dL (0-1.6)
[2023-10-10 16:39] LABS: Creatinine Urine Random 18.8 mg/dL
== END ==
PROVIDERS: PCP Family Medicine; Referring Provider Family Medicine; Visit Provider Family Medicine
DX: Z00.00 Encounter for general adult medical examination without abnormal findings (principal); I10 Essential (primary) hypertension; Z12.4 Encounter for screening for malignant neoplasm of cervix; R07.89 Other chest pain; Z11.4 Encounter for screening for human immunodeficiency virus [HIV]; Z12.11 Encounter for screening for malignant neoplasm of colon; Z11.59 Encounter for screening for other viral diseases
CPT/HCPCS: 36415; 80053; 80061; 82043; 82570; 83036; 87389

== ENCOUNTER → 2023-11-06 07:47 | Outpatient (CLI) | payer OTHER, SELFPAY ==
--- NOTE | 2023-11-06 07:49 | DI.NM.S_ITS ---
PROCEDURE: NM EXERCISE TREADMILL NON NUC COMPARISON: None. INDICATIONS: atypical chest pain FINDINGS: The patient exercised for 6 minutes and 14 seconds, reaching 86% of maximum predicted heart rate. Mildly reduced exercise tolerance (6.4METs, JEREMY +16%). Hypertension at rest (BP 160/90mmHg) and borderline hypertensive response to exercise (max BP 200/85mmHg). Mild horizontal ST depressions in the inferior and anterolateral leads during recovery. No angina and no ectopy during the study. IMPRESSION: Abnormal treadmill ECG only stress test with mildly reduced exercise tolerance (JEREMY +16%). No angina during the study. Recommend exercise nuclear stress test for further evaluation. Dictated by: Dana Vaughn MD on 11/07/2023 at 15:03 Approved by: Dana Vaughn MD on 11/07/2023 at 15:07
== END ==
LOC: RAD 07:48
PROVIDERS: PCP Family Medicine; Referring Provider Family Medicine; Visit Provider Family Medicine
DX: R07.89 Other chest pain (principal); R94.39 Abnormal result of other cardiovascular function study; I10 Essential (primary) hypertension
CPT/HCPCS: 93016; 93017; 93018

== ENCOUNTER → 2025-08-29 11:33 | Outpatient (CLI) | payer OTHER, SELFPAY ==
[2025-08-29 12:30] LABS: INR 2.4 (0.9-1.3); Prothrombin Time 26.4 SECONDS (9.4-12.5)
== END ==
PROVIDERS: PCP Family Medicine; Referring Provider Family Medicine; Visit Provider Family Medicine
DX: I27.82 Chronic pulmonary embolism (principal); D68.51 Activated protein C resistance; Z79.01 Long term (current) use of anticoagulants
CPT/HCPCS: 36415; 85610